=== PATIENT | male | born 1965 | race Caucasian/White ===

== ENCOUNTER → 2018-09-25 | Outpatient (REF) | payer OTHER | END | disposition home or self-care (01) | DRG 552 | LOC: MRI 10:16 | PROVIDERS: ATTEND Internal Medicine | DX: M54.5 Low back pain (principal) ==

== ENCOUNTER 2020-08-10 10:48 | Inpatient (IN) | payer OTHER ==
[~2020-08-10] VITALS: Ht 177.8 cm; Wt 114.4 kg
--- NOTE | 2020-08-10 10:55 | NUR ---
TO ROOM VIA WHEELCHAIR ACCOMPANIED BY 2 SECURITY OFFICERS.
--- NOTE | 2020-08-10 10:55 | NUR ---
TO ROOM 08 FOR TRIAGE
[2020-08-10 11:35] LABS: HEMATOCRIT 35.7 % (39.0-50.0); IMMATURE GRANULOCYTES 4.2 % (0.0-5.0); MEAN CELL VOLUME 90.8 fL CALC (80.0-100.0); MEAN CORPUSCULAR HGB 27.5 pG CALC (26.0-32.0); MEAN CORPUSCULAR HGB CONC 30.3 g/dL CAL (32.0-36.0); NEUT# 11.96 thou/uL (1.82-7.42); RED BLOOD COUNT 3.93 mill/uL (4.70-6.10)
[2020-08-10 11:36] LABS: HEMOGLOBIN 10.8 g/dl (14.0-18.0)
--- NOTE | 2020-08-10 11:40 | NUR ---
TO ULTRASOUND WITH [employer] STAFF ACCOMPANYING.
[2020-08-10 11:56] LABS: ANION GAP 13 (6-22 (CALC)); BUN 14 mg/dL (9-20); BUN/CREATININE RATIO 11 (12-20 (CALC)); CARBON DIOXIDE 29 mmol/l (22-30); CHLORIDE 103 mmol/l (95-108); CREATININE 1.3 mg/dL (0.7-1.3); GFR 57 ML/MIN (>=60 (CALC)); GFR FOR AFR.AMER. > 60 ML/MIN (>=60 (CALC)); POTASSIUM 4.4 mmol/l (3.5-5.1); SODIUM 141 mmol/l (137-146)
[2020-08-10] MEDS ORDERED: TAMSULOSIN HCL0.4 MG PO (12:05)
[2020-08-10] MEDS ORDERED: LEVOTHYROXIN100 MCG PO (12:06)
[2020-08-10] MEDS ORDERED: VENTOLIN HFA IN (12:06)
[2020-08-10] MEDS ORDERED: MELOXICAM7.5 MG PO (12:07)
[2020-08-10] MEDS ORDERED: QVAR REDIH40 MCG/ACT IN (12:08)
[2020-08-10] MEDS ORDERED: OMEPRAZOLE20 MG PO (12:09)
[2020-08-10] MEDS ORDERED: FENOFIBRATE145 MG PO (12:09)
[2020-08-10] MEDS ORDERED: LITHIUM CARB300 MG PO ×2 (12:10→12:13)
[2020-08-10] MEDS ORDERED: CLINDAMYCIN HC150 MG PO (12:11)
[2020-08-10] MEDS ORDERED: GABAPENTIN100 MG PO (12:12)
--- NOTE | 2020-08-10 12:40 | NUR ---
AWAITING ADMISSION. NO C/O
--- NOTE | 2020-08-10 13:42 | NUR ---
REPORT CALLED TO TRINA GARCIA IN SBAR FORMAT.
--- NOTE | 2020-08-10 13:47 | NUR ---
PT ARRIVED TO MED/SURG ROOM 276 IN STABLE CONDITION VIA WHEELCHAIR ACCOMPANIED BY JOSE CAIN AND X2 GUARDS;PT AMBULATED TO BEDSIDE WITH A STEADY GAIT;WT AND VS OBTAINED BY ALIS GOMEZ;PT A&O X3, ORIENTED TO ROOM AND CALL LIGHT SYSTEM;PT REPORTS INCREASED EDEMA AND REDDNESS TO LLE SINCE Monday08/03/20 AFTER RECEIVING COVID19 VACCINE;PT REPORTS MINIMAL PAIN AT THIS TIME,PAIN SCALE AND REPORTING EDUCATED;RESPIRATIONS EVEN AND UNLABORED ON RA,CLEAR LUNG SOUNDS;ABDOMEN SOFT ON PALPATION AND ACTIVE IN ALL 4 QUADRANTS,LAST BM 08/10/20;STRONG PEDAL PULSES;LLE REDDENED WITH EDEMA NOTED, ENCOURAGED ELEVATION ON PILLOW;PHOTOGRAPH TAKEN AND PLACED IN CHART;#20G TO RAC INFUSING NS PER ORDER;ALLERGY BAND APPLIED TO LEFT HAND;PT DENIES ANY ADDITIONAL NEEDS AT THIS TIME;ENCOURAGED TO CALL FOR ASSISTANCE IF NEEDED;FALL PRECAUTIONS IN PLACE WITH BED IN THE LOWEST POSITION AND CALL LIGHT IN REACH;WILL CONTINUE TO MONITOR
--- NOTE | 2020-08-10 13:52 | NUR ---
TRANSFERRED VIA WC TO [facility] ROOM 276. STABLE UPON ARRIVAL. IV INTACT
[2020-08-10 14:15] VITALS: BP 116/54
--- NOTE | 2020-08-10 14:27 | NUR ---
S: BESSY WEBBER is a 55 M who presents with cellulitis. He has a history of mental disorder and thyroid. All medications in patient's chart were reviewed. O: VS: BP 116/54 mmHg, P 59 bpm, RR 20 breaths per minute ,T 98.1 F W 114.4 kg, HT 60 in, Scr= 1.3 mg/dL, CrCl= 81 ml/min A: Blood culture is pending. P: Patient is on Zosyn 3.375 g Q6H. Vancomycin ordered for pharmacy to dose. Start Vancomycin 1 g IV Q8H. Vancomycin trough is drawn before the 4th dose on 08/11/20 at 1330. Vancomycin goal trough is between 10-15 mcg/ml. Pharmacy will follow and or advise on antibiotics use as needed.
--- NOTE | 2020-08-10 15:14 | NUR ---
PT WOULD BENEFIT FROM PT EVALUATION IF MEDICAL AGREES.
--- NOTE | 2020-08-10 15:45 | NUR ---
PT RESTING IN SEMI FOWLERS POSITION WITH X2 GUARDS AT BEDSIDE;RESPIRATIONS EVEN AND UNLABORED ON RA;PT DENIES ANY CURRENT PAIN OR DISCOMFORTS;IV FLUIDS INFUSING WITH EASE PER ORDER;LLE REMAINS ELEVATED;PT ENCOURAGED TO CALL FOR ASSISTANCE IF NEEDED;CALL LIGHT IN REACH;WILL CONTINUE TO MONITOR
[2020-08-10 18:41] VITALS: BP 107/61
--- NOTE | 2020-08-10 20:04 | NUR ---
PHYSICAL ASSESMENT COMPLETE. PT CURRENTLY DENIES PAIN OR DISCOMFORT. SCHEDULED MEDICATIONS AND PRN MEDICATION ADMINISTERED, SEE E-MAR. PT DENIES ANY NEEDS AT THIS TIME. PLAN OF CARE REVIEWED, PT DENIES QUESTIONS, VERBALIZES UNDERSTANDING. ITEMS WITHIN REACH, BED LOCKED IN LOW POSITION W/ BEDRAILS UP X2. CALL ACE WITHIN REACH, AGREES TO CALL PRN.
--- NOTE | 2020-08-10 22:50 | NUR ---
PT GIVEN ANTIBIOTICS. PT HAS 2 GUARDS BEDSIDE AND IS SHACKELED TO THE BED. PT HAS GOOD CIRCULATION. WILL CONTINUE TO ASSESS AND MONITOR.
--- NOTE | 2020-08-11 00:04 | NUR ---
PT LAYING IN BED WITH EYES CLOSED, APPEARS TO BE SLEEPING, APPEARS COMFORTABLE AND IN NO DISTRESS. RESPIRATIONS REGULAR AND UNLABORED. 2 GUARDS REMAIN BEDSIDE. PT SHACKLED TO THE BED. VERIFIED GOOD CIRCULATION. ITEMS REMAIN WITHIN REACH, CALL ACE REMAINS WITHIN REACH. BED REMAINS LOCKED AND IN LOW POSITION WITH BEDRAILS UP X2. WILL CONTINUE TO MONITOR.
[2020-08-11 04:01] VITALS: BP 96/48
--- NOTE | 2020-08-11 06:19 | NUR ---
PT RESTING IN BED, NO SIGNS OF DISTRESS NOTED, RESP EVEN AND UNLABORED. PT VOICES NO NEEDS OR COMPLAINTS AT THIS TIME. 2 GUARDS BEDSIDE. PT ANKLE SHACKELED TO THE BED. CIRCULATION GOOD. CALL LIGHT IN REACH, CONTINUE TO MONITOR.
[2020-08-11 07:45] VITALS: BP 112/64
--- NOTE | 2020-08-11 08:19 | NUR ---
@07:00 RECEIVED REPORT ON PT FROM NIGHT NURSERACHEL.
--- NOTE | 2020-08-11 09:00 | NUR ---
PT WAS FOUND RESTING COMFORTABLY IN BED WITH X2 GUARDS IN ROOM;HANDCUFFS IN PLACE ON RT ANKLE;HEART SOUNDS WERE REGULAR; RADIAL PULSES EVEN BILATERALLY;PEDAL PULSES NOTED BILATERALLY; REDNESS, WARMTH AND 2+PITTING EDEMA NOTED IN LLE;WOUND OBSERVED ON LEFT ANKLE;PT REPORTS PAIN IN LLE, DECLINING PAIN MEDICATIONS AT THIS TIME. LUNG SOUNDS CLEAR IN ALL BUENO;PT IS ON RA WITH NON-LABORED RESPIRATIONS. ABDOMEN WAS SOFT AND NON-TENDER WITH ACTIVE BOWEL SOUNDS IN ALL QUADRANTS; #20 IN RAC INFUSING NS @100ML/HR; SITE APPEARS HEALTHY; VITALS SIGNS WERE WITHIN NORMAL RANGE;PT DOES NOT HAVE ANY CURRENT NEEDS OR QUESTIONS AT THIS TIME;CALL LIGHT WAS LEFT WITHIN REACH;BED IN LOWEST POSITION; WILL CONTINUE TO MONITOR.
--- NOTE | 2020-08-11 12:15 | NUR ---
PT WAS SITTING IN BED EATING LUNCH; IV SITE PATENT AND FREE OF COMPLICATIONS; ZOSYN WAS STARTED AT THIS TIME; PT EXPRESSED NO COMPLAINTS OR ISSUES; CALL LIGHT LEFT WITHIN REACH;BED IN LOWEST POSITION; ADVISED PT TO CALL WITH NEEDS OR CONCERNS; WILL CONTINUE TO MONITOR.
--- NOTE | 2020-08-11 13:45 | NUR ---
DR. SORTO AT BEDSIDE;CONSULTATION FOR LLE WOUND.
--- NOTE | 2020-08-11 14:44 | NUR ---
S: BESSY WEBBER is a 55 M who presents with cellulkitis All medications in patient's chart were reviewed. O: W 114.4 kg, HT 70in, Scr 1.3 mg/dl, CrCl 81.4 ml/min A: Vancomycin trough 08/11 @ 1330 = 11 mcg/ml P: Patient is on Zosyn 3.375g IV q6h Vancomycin ordered for pharmacy to dose. Continue Vancomycin 1g IV Q8H. Vancomycin trough is drawn before the 4th dose on 08/12 @ 1330. Vancomycin goal trough is between 10-15 mcg/ml. Pharmacy will follow and or advise on antibiotics use as needed.
[2020-08-11 16:00] VITALS: BP 100/59
--- NOTE | 2020-08-11 16:35 | NUR ---
PT TRANSPORTED TO MRI IN STABLE CONDITION VIA WHEELCHAIR ACCOMPANIED BY ALIS MUELLER.
--- NOTE | 2020-08-11 18:49 | NUR ---
PT TRANSPORTED BACK TO MED/SURG ROOM 276 IN STABLE CONDITION VIA WHEELCHAIR ACCOMPANNIED BY [place]OR[place] MUELLER AND X2 GUARDS.
[2020-08-11 19:00] VITALS: BP 96/59
--- NOTE | 2020-08-12 00:37 | NUR ---
PT LAYING IN BED WITH EYES CLOSED, APPEARS TO BE SLEEPING, APPEARS COMFORTABLE AND IN NO DISTRESS. RESPIRATIONS REGULAR AND UNLABORED. PT SHACKLED TO BED ON RIGHT ANKLE. CIRCULATION VERIFIED. 2 GUARDS ARE PRESENT AT BEDSIDE. ITEMS REMAIN WITHIN REACH, CALL ACE REMAINS WITHIN REACH. BED REMAINS LOCKED AND IN LOW POSITION WITH BEDRAILS UP X2. WILL CONTINUE TO MONITOR.
[2020-08-12 03:44] VITALS: BP 100/51
[2020-08-12 06:09] LABS: HEMATOCRIT 38.1 % (39.0-50.0); HEMOGLOBIN 11.5 g/dl (14.0-18.0); MEAN CELL VOLUME 89.6 fL CALC (80.0-100.0); MEAN CORPUSCULAR HGB 27.1 pG CALC (26.0-32.0); MEAN CORPUSCULAR HGB CONC 30.2 g/dL CAL (32.0-36.0); RED BLOOD COUNT 4.25 mill/uL (4.70-6.10); RED CELL DISTRI WIDTH 15.9 % (11.5-15.5)
[2020-08-12 06:33] LABS: ALBUMIN 3.5 g/dL (3.2-5.0); ALKALINE PHOSPHATASE 83 u/l (38-126); ANION GAP 11 (6-22 (CALC)); BILIRUBIN, TOTAL 0.6 mg/dL (0.0-1.4); BUN 15 mg/dL (9-20); BUN/CREATININE RATIO 12 (12-20 (CALC)); CARBON DIOXIDE 25 mmol/l (22-30); CHLORIDE 105 mmol/l (95-108); CREATININE 1.2 mg/dL (0.7-1.3); GFR > 60 ML/MIN (>=60 (CALC)); GFR FOR AFR.AMER. > 60 ML/MIN (>=60 (CALC)); POTASSIUM 4.8 mmol/l (3.5-5.1); SGOT/AST 27 u/l (17-59); SODIUM 137 mmol/l (137-146); TOTAL PROTEIN 7.2 g/dL (6.3-8.2)
[2020-08-12 07:57] VITALS: BP 121/51
--- NOTE | 2020-08-12 07:57 | NUR ---
PT LAYING IN BED. A&O X3. X2 GUARDS AT BEDSIDE. SHACKLE IN PLACE TO RT ANKLE. PT DENIES ANY PAIN AT THIS TIME. LLE REDDENED, WARM TO TOUCH WITH NO VISIBLE DRAINAGE NOTED TO BLISTER/ULCER LOCATED TO LT ANKLE. LLE PLACED ON PILLOW TO ELEVATE AND ASSIST WIT SWELLING. ASSESSMENT COMPLETED. DISCUSSED POC. CALL LIGHT LEFT WITHIN REACH.
--- NOTE | 2020-08-12 09:03 | NUR ---
DR CABALLERO AND Kumar GOFF APRN AT BEDSIDE
--- NOTE | 2020-08-12 11:56 | NUR ---
PT SITTING IN BED. X2 GUARDS AT BEDSIDE. NO NEEDS OR DISTRESS AT THIS TIME. CALL LIGHT LEFT WITHIN REACH.
--- NOTE | 2020-08-12 14:00 | NUR ---
VENIPUNCTURE PERFORMED BY THIS MARKETING ANALYTICS SPECIALIST FOR [facility]. SAMPLE OBTAINED, LABELED AND SENT TO LAB
--- NOTE | 2020-08-12 14:25 | NUR ---
[facility] RESULT PENDING AT THIS TIME
--- NOTE | 2020-08-12 14:52 | NUR ---
S: BESSY WEBBER is a 55 M who presents with cellulitis. He has a history of arthritis, lung disease, mental health disorder-depression, hypothyroid. All medications in patient's chart were reviewed. O: VS: BP 121/51 mmHg, P 55 bpm, RR 18 breaths per min, T 98.1 F W 114.39 kg, HT 70 in, Scr= 1.2 mg/dL, CrCl= 88.1 ml/min A: Vancomycin trough 08/12 @1330 = 10 mcg/mL Body fluid culture is pending. Blood culture is pending. P: Patient is on Zosyn 3.375 g IV Q6H. Vancomycin ordered for pharmacy to dose. Continue Vancomycin 1 g IV Q8H. Vancomycin trough is drawn before the 4th dose on 08/12/20 @ 1330. Vancomycin goal trough is between 10-15 mcg/ml. Pharmacy will follow and or advise on antibiotics use as needed.
[2020-08-12 15:00] VITALS: BP 100/47
--- NOTE | 2020-08-12 18:13 | NUR ---
PT SITTING IN BED EATING DINNER. X2 GUARDS AT BEDSIDE. NO DRAINAGE NOTED TO LLE. LLE ELEVATED ON PILLOW. CALL LIGHT LEFT WITHIN REACH.
[2020-08-12 19:30] VITALS: BP 100/51
--- NOTE | 2020-08-12 19:40 | NUR ---
RECEIVED CHANGE OF SHIFT REPORT FROM CHANDRIKA, CARE OF PATIENT ASSUMED.
--- NOTE | 2020-08-12 20:00 | NUR ---
PT A&O X 3 LAYING IN BED, WATCHING TV. 2 [employer] GUARDS PRESENT AT BEDSIDE. ASSESSMENT COMPLETE, POC DISCUSSED. NO S/SX OF DISCOMFORT OR DISTRESS EXPRESSED OR OBSERVED AT THIS TIME. PT DENIES ANY CURRENT NEEDS OR CONCERNS AT THIS TIME. ALL SAFETY MEASURE IN PLACE, BED IN LOWEST POSITION WITH WHEELS LOCKED AND UPPER SIDE RAILS UP X 2 AND CALL LIGHT WITHIN REACH. PT INSTRUCTED TO CALL FOR ANY NEEDS/ASSISTANCE. WILL CONTINUE TO MONITOR.
--- NOTE | 2020-08-13 | NUR ---
PT LAYING IN BED SLEEPING, NO S/SX OF DISTRESS OR DISCOMFORT OBSERVED. CALL LIGHT WITHIN REACH, WILL CONITINUE TO MONITOR FOR COMFORT AND SAFETY.
--- NOTE | 2020-08-13 04:07 | NUR ---
[facility] CALLED REQUESTING UPDATE, INFORMATION PROVIDED.
--- NOTE | 2020-08-13 04:25 | NUR ---
PATIENT LAYING IN BED RESTING, NO S/SX OF DISTRESS OR DISCOMFORT NOTED AT THIS TIME, WILL CONTINUE TO MONITOR FOR COMFORT AND SAFETY.
[2020-08-13 04:34] VITALS: BP 92/58
[2020-08-13 06:13] LABS: HEMATOCRIT 35.5 % (39.0-50.0); HEMOGLOBIN 10.5 g/dl (14.0-18.0); MEAN CELL VOLUME 90.1 fL CALC (80.0-100.0); MEAN CORPUSCULAR HGB 26.6 pG CALC (26.0-32.0); MEAN CORPUSCULAR HGB CONC 29.6 g/dL CAL (32.0-36.0); RED BLOOD COUNT 3.94 mill/uL (4.70-6.10); RED CELL DISTRI WIDTH 15.5 % (11.5-15.5)
[2020-08-13 06:44] LABS: ALBUMIN 3.5 g/dL (3.2-5.0); ALKALINE PHOSPHATASE 73 u/l (38-126); ANION GAP 11 (6-22 (CALC)); BILIRUBIN, TOTAL 0.5 mg/dL (0.0-1.4); BUN 16 mg/dL (9-20); BUN/CREATININE RATIO 13 (12-20 (CALC)); CARBON DIOXIDE 27 mmol/l (22-30); CHLORIDE 103 mmol/l (95-108); CREATININE 1.2 mg/dL (0.7-1.3); GFR > 60 ML/MIN (>=60 (CALC)); GFR FOR AFR.AMER. > 60 ML/MIN (>=60 (CALC)); SGOT/AST 26 u/l (17-59); SODIUM 135 mmol/l (137-146); TOTAL PROTEIN 7.2 g/dL (6.3-8.2)
[2020-08-13 07:15] VITALS: BP 99/49
--- NOTE | 2020-08-13 07:15 | NUR ---
PT LAYING IN BED. A&O X3. GUARDS AT BEDSIDE X2, SHACKLE IN PLACE TO RT ANKLE. PT DENIES ANY PAIN AT THIS TIME. LLE STILL REDDENED IN APPEARANCE BUT LESS SWELLING AND REDDENED COMPARED TO YESTERDAY. NO ACTIVE DRAINAGE NOTED. LLE PLACED ON PILLOW TO ELEVATE. ASSESSMENT COMPLETED. DISCUSSED POC. CALL LIGHT LEFT WITHIN REACH.
--- NOTE | 2020-08-13 08:38 | NUR ---
DR CABALLERO AND Wilmer CANO APRN AT BEDSIDE
--- NOTE | 2020-08-13 11:32 | NUR ---
PT SITTING IN BED. NO DISTRESS OR NEEDS. X2 GUARDS AT BEDSIDE. CALL LIGHT IN REACH.
--- NOTE | 2020-08-13 11:34 | NUR ---
INFORMED CONSENT FOR INCISION AND DRAINAGE OF LEFT ANKLE ABSCESS OBTAINTED.
--- NOTE | 2020-08-13 14:47 | NUR ---
S: BESSY WEBBER is a 55 M who presents with cellulitis. He has a history of arthritis, mental health disorder, hypothyroid, and lung disease. All medications in patient's chart were reviewed. O: Vancomycin trough on 08/13/20: 14 ug/ml VS: BP 99/49 mmHg, P 56 bpm, RR 16 breaths/min, T 97.3 F W 114.39 kg, HT 70 in, Scr= 1.2 mg/dl, CrCl= 88.1 ml/min A: Blood culture is pending. Body fluid culture is pending. P: Patient is on Zosyn 3.375 g IV Q6H. Vancomycin ordered for pharmacy to dose. Continue Vancomycin 1 g IV Q8H. Vancomycin trough is drawn before the 4th dose on 08/14/20 at 1330. Vancomycin goal trough is between 10-15 mcg/ml. Pharmacy will follow and or advise on antibiotics use as needed.
[2020-08-13 14:57] VITALS: BP 92/51
--- NOTE | 2020-08-13 15:25 | NUR ---
PT LAYING IN BED. X2 GUARDS AT BEDSIDE. NO DISTRESS NOTED. CALL LIGHT LEFT WITHIN REACH.
[2020-08-13 19:32] VITALS: BP 91/48
--- NOTE | 2020-08-13 21:30 | NUR ---
PTIN BED WITH EYES OPEN. ABLE TO MAKE NEEDS KNOWN. RESPIRATIONS ARE EVEN AND NON LABORED. HAS NS RUNNING WITHNO COMPLICATIONS.ON IV ABT THEARPY WITH NO ADVERSE SIDE EFFECTS. MEDICATIONS GIVEN AND TOLERATED WELL. HAS REDNESS, WARMTH, AND SWELLING NOTED TO LEFT LOWEREXTREMITY. BLISTERED AREA TO LEFT OUTER ANKLE AREA IS INTACTAND PAINFUL TO TOUCH WITH SOME MACERATION NOTED AROUND SITE. CALL LIGHT WITHIN REACH. WILL CONTINUE TO OBSERVE
[2020-08-14] VITALS (11 sets, daily range): BP systolic 83–103; BP diastolic 34–63
--- NOTE | 2020-08-14 02:49 | NUR ---
PT IN BED WITH EYES CLOSED. VIRI FROM [facility] AT BEDSIDE. PT IS EASILY AROUSED. TOLERATED IV ABT THERAPY WELL. CALLLIGHT IS WITHIN REACH. WILL CONTINUE TO OBSERVE
[2020-08-14 05:45] LABS: ANION GAP 11 (6-22 (CALC)); BUN 22 mg/dL (9-20); BUN/CREATININE RATIO 17 (12-20 (CALC)); CARBON DIOXIDE 27 mmol/l (22-30); CHLORIDE 104 mmol/l (95-108); CREATININE 1.3 mg/dL (0.7-1.3); GFR 57 ML/MIN (>=60 (CALC)); GFR FOR AFR.AMER. > 60 ML/MIN (>=60 (CALC)); POTASSIUM 4.7 mmol/l (3.5-5.1); SODIUM 137 mmol/l (137-146)
--- NOTE | 2020-08-14 07:30 | NUR ---
RECIEVED REPORT DUC HERNANDEZ RN. PT CURRENTLY IN OR FOR SCHEDULED I&D OF LEFT ANKLE.
--- NOTE | 2020-08-14 09:27 | NUR ---
PT ARRIVED TO [facility] ROOM 276 VIA BED IN STABLE CONDITION.REPORT RECIVED FROM OR NURSE. INTRODUCED SELF TO PT AND DISCUSSED POC. PT IS A/O X3 BUT STILL DROWSY.PT IS FROM [facility] WITH GUARDS X2 AT BESIDE. ASSESSMENT AND VITALS COMPLETED. RESPIRATIONS ARE EVEN AND UNLABORED ON ROOM AIR. HEART RHYTHM IS NORMAL. BOWEL SOUNDS ARE ACTIVE, LAST RPEORTED BM 08/12/20. RADIAL AND RIGH PEDAL PULSES STRONG. DRESSING ON LEFT FOOT CDI AT THIS TIME.SCDS IN PLACE. #20G IN RAC INFUSING WITH NORMAL SALINE PER ORDER, SITE APPEARS HEALTHY AND PATENT. PT COMPLAINS OF 3/10 PAIN IN LEFT FOOT. NO ORDERS RECIEVED FROM OR, ORDERS TO BE OBTAINED.PT DENEIS OF ANY OTHER NEEDS AT THIS TIME. ALL SAFETY PRECAUTIONS ARE IN PLACE. WILL CONTINUE TO MONITOR.
--- NOTE | 2020-08-14 10:30 | NUR ---
PT COMPLAINS OF VITALS MACHINE BEEPING. WINDSHIELD WIPER REPAIRER INFORMED PT THAT IT WAS DUE TO HIS HR BEING LOW . WINDSHIELD WIPER REPAIRER EXPRESSED THE NEED FOR MACHINE DUE TO HOSPITAL PROTOCAL. PT VERBALIZED UNDERSTANDING.
--- NOTE | 2020-08-14 11:00 | NUR ---
PT YELLING " TAKE THIS MACHINE OFF, I DONT WANT IT ANY MORE." WRITTER EXPRESSED THE NEED FOR MONITORING BP AND HR. PT REFUSED STATING " TAKE IT OFF." VITALS MACHINE REMOVED. PT COMPLAINS OF 7/10 PAIN IN LEFT ANKLE, PT MEDICATED PER EMAR. PT DENIES OF ANY ATTIONAL NEEDS.SAFTEY PRECAUTIONS IN PLACE WITH GUARDS X2 AT BEDSIDE. WILL CONTINUE TO MONITOR
--- NOTE | 2020-08-14 12:19 | NUR ---
REASSESSMENT OF BP AFTER BOLUS X1 RESULTING IN 99/60. SECOND BOLUS ORDERED, SITE REAMINS HEAHTLHY AND PATENT. REASSESSMENT OF PAIN RESULTING IN 6/10. REPSIRATIONS REMAINS EVEN AND UNLABORED ON ROOM AIR. PT DENIES OF ANY NEEDS AT THIS TIME. ALL SAFETY PRECAUTIONS ARE IN PLACE WITH GUARDS X2 AT BEDSIDE. WILL CONTINUE TO MONITOR
--- NOTE | 2020-08-14 14:22 | NUR ---
S: BESSY WEBBER is a 55 M who presents with cellulitis. He has a history of mental disorder, thyroid. All medications in patient's chart were reviewed. O: Vancomycin trough was 13 ug/mL on 08/14/20 @1330. VS: BP 83/42 mmHg, P 48 bpm, RR 18 breaths per min, T 97.2 F W 114.39 kg, HT 70 in, Scr= 1.3 mg/dL, CrCl= 81.4 ml/min A: Wound culture is pending. Body fluid culture is pending. Blood culture is pending. P: Patient is on Zosyn 3.375 g Q6H. Vancomycin ordered for pharmacy to dose. Continue Vancomycin 1 g IV Q8H. Vancomycin trough is drawn on 08/16/20 @ 0530. Vancomycin goal trough is between 10-15 mcg/ml. Pharmacy will follow and or advise on antibiotics use as needed.
--- NOTE | 2020-08-14 15:29 | NUR ---
PT RESTING IN SEMI FOWLERS POSITION. RESPIRATIONS ARE EVEN AND UNLABORED ON ROOM AIR. PT COMPLAINS OF BURNING IN LEFT LEG BUT REFUSES ANY PAIN MEDICATION AT THIS TIME. IVF INFUSING PER ORDER, SITE REMAINS HEALTHY AND PATENT. DRESSING TO LEFT ANKLE REMAINS CDI AT THIS TIME, ELEVATED ON PILLOW X2. PT REQUEST FOR EXTRA BLANKET. ALL SAFETY PRECAUTIONS REMAINS IN PLACE WITH GUARDS X2 AT BEDSIDE. WILL CONTINUE TO MONITOR
--- NOTE | 2020-08-14 20:00 | NUR ---
REPORT RECEIVED. ASSESSMENT COMPLETE. SAFETY MEASURES IN PLACE. CALL LIGHT WITHIN REACH.
--- NOTE | 2020-08-15 | NUR ---
PT LAYING IN BED SLEEPING, NO S/SX OF DISTRESS OR DISCOMFORT OBSERVED AT THIS TIME; RESPIRATIONS EVEN AND NON-LABORED ON ROOM AIR. SAFETY MEASURES IN PLACE, CALL LIGHT WITHIN REACH. WILL CONTINUE TO MONITOR.
[2020-08-15 00:14] VITALS: BP 80/49
[2020-08-15 03:35] VITALS: BP 83/47
[2020-08-15 08:28] VITALS: BP 91/51
--- NOTE | 2020-08-15 08:28 | NUR ---
RECIEVED REPORT FROM BONNIE PEREZ. PT RESTING IN SEMI FOWLERS POSITION UPON ENTERING ROOM. INTRODUCED SELF TO PT AND DICUSSED POC. PT IS A/O X3 AND FROM [facility]. ASSESSMENT AND VITALS COMPLETED. RESPIRATIONS ARE EVEN AND UNLABORED WITH NO SIGNS OF DISTRESS. HEART RHYTHM IS NORMAL. BOWEL SOUNDS ARE ACTIVE IN ALL QUADRANTS, LAST REPORTED BM 08/12/20. RADIAL AND RIGHT PEDAL PULSE ARE STORNG. DRESSING TO LEFT FOOT IS CDI AT THIS TIME. PT COMPLAINS OF 5/10 PAIN TO LEFT FOOT BUT REFUSES ANY PAIN MEDICATION AT THIS TIME. SKIN IS WAMR AND INTACT WITH NO BREAK DOWN NOTED. ALL SAFETY PRECAUTIONS ARE IN PLACE WITH CALL LIGHT IN REACH AND GUARDS X2 AT BEDSIDE. WILL CONTINUE TO MONITOR.
--- NOTE | 2020-08-15 09:40 | NUR ---
DR DAVENPORT AT BEDSIDE.
--- NOTE | 2020-08-15 09:55 | NUR ---
DRESSING TO LEFT FOOT CHANGED. ADAPITC, 4X4 GAUZE, KRELEX WRAP AND RISHABH WRAP APPLIED. PT TOELRATED WELL. ELEVATED LIMB WITH PILLOWS X2.
[2020-08-15 12:00] VITALS: BP 102/70
--- NOTE | 2020-08-15 12:24 | NUR ---
PT RESTING IN SEMI FOWLERS POSITION. REPSIRATIONS AR EVEN AND UNLABORED ON ROOM AIR. PT COMPLAINS OF 3/10 PAIN IN LEFT FOOT. NEW ORDER FOR TORADOL ORDERED DUE TO LOW BP. DRESSING TO LEFT FOOT REMAINS CDI AT THIS TIME. MOM ADMINISTERED TO ASSIST WITH BM . PT DENEIS OF ANY BOTHER NEEDS AT THIS ITME. ALL SAFETY PRECAUTIONS ARE IN PLACE WITH GUARDSX2 AT BEDSIDE. . WILL CONTINUE TO MONITOR
--- NOTE | 2020-08-15 14:33 | NUR ---
ATTEMPTED TO START NEW IV. UNSUCESSFUL X2. ANOTHER NURSE TO TRY
--- NOTE | 2020-08-15 15:04 | NUR ---
NEW #22G STARTED IN [facility], SITE APPEASR HEALTHY AND PATENT.PT TOELRATED WELL.
--- NOTE | 2020-08-15 15:48 | NUR ---
PT RESTING IN SEMI FOWLERS POSITION. RESPIRATIONS ARE EVEN AND UNLABORED ON ROOM AIR. IV ANTIBIOTICS INFUSING WITH EASE, SITE APPEARS HEALTHY AND PATENT. PT DENIES OF ANY PAINS OR NEEDS.LEFT ANKLE DRESSING CDI, ELEVATED WITH PILLOWS X2. ALL SAFETY PRECAUTIONS ARE IN PLACE WITH CALL LIGHT IN REACH GUADS X2 AT BEDSIDE. WILL CONTINUE TO MONITOR.
[2020-08-15 16:15] VITALS: BP 111/73
--- NOTE | 2020-08-15 19:15 | NUR ---
REPORT RECEIVED. ASSESSMENT COMPLETE. SAFETY MEASURES IN PLACE. CALL LIGHT WITHIN REACH.
[2020-08-15 19:55] VITALS: BP 88/48
--- NOTE | 2020-08-15 23:30 | NUR ---
DRESSING CHANGE OF LEFT FOOT/ ANKLE COMPLETED. PT TOLERATE REMOVAL OF OLD DRESSED WELL, SMALL AMOUNT OF SEROSANGUINEOUS FLUID WITHOUT ODOR, PER MD LLE CLEANSED WITH NS AND PATTED DRY. PLACE APAPTIC GUAZE, 4X4 AND STERILE GUAZE AND WRAP WITH KRELEX & RISHABH WRAP- PT TOLERATED PROCEDURE WELL. REASSESED CIRCULATION OF LLE ASSESS S/P DRESSING- NO S/SX OF DECRESAED CIRCULATION OBSEVERED AT THIS TIME, INSTRUCTED PT TO CALL IF HE DEVELOPED ANY UNSUAL NUMBNESS, LOSE OF SENSATION, THROBBING, OR CHANGE OF SKIN COLOR, PT VERBALIZED UNDERSTANDING. PT OS TOLERATING WELL WITH PILLOWS IN PLACE ON LLE FOR COMFORT SAFETY MEASURES IN PLACE AND LIGHT WITHIN REACH. WILL CONTINUE TO MONITOR.
--- NOTE | 2020-08-16 | NUR ---
PT LAYING IN BED RESTING, NO S/SX OF DISTRESS OR DISCOMFORT OBSERVED AT THIS TIME; RESPIRATIONS EVEN AND NON-LABORED ON ROOMAIR. SAFETY MEASURES IN PLACE, CALL LIGHT WITHIN REACH. WILL CONTINUE TO MONITOR.
[2020-08-16 03:59] VITALS: BP 109/61
--- NOTE | 2020-08-16 05:54 | NUR ---
VANCO TROUGH DUE & OBTAINED- RESULTS 22 THIS AM, OVER THERAPEUTIC RANGE & HELD.
[2020-08-16 06:05] LABS: HEMATOCRIT 38.1 % (39.0-50.0); HEMOGLOBIN 11.5 g/dl (14.0-18.0); MEAN CELL VOLUME 90.5 fL CALC (80.0-100.0); MEAN CORPUSCULAR HGB 27.3 pG CALC (26.0-32.0); MEAN CORPUSCULAR HGB CONC 30.2 g/dL CAL (32.0-36.0); RED BLOOD COUNT 4.21 mill/uL (4.70-6.10)
[2020-08-16 06:27] LABS: ALBUMIN 3.6 g/dL (3.2-5.0); ALKALINE PHOSPHATASE 59 u/l (38-126); ANION GAP 12 (6-22 (CALC)); BILIRUBIN, TOTAL 0.3 mg/dL (0.0-1.4); BUN 20 mg/dL (9-20); BUN/CREATININE RATIO 17 (12-20 (CALC)); CARBON DIOXIDE 25 mmol/l (22-30); CHLORIDE 105 mmol/l (95-108); CREATININE 1.2 mg/dL (0.7-1.3); GFR > 60 ML/MIN (>=60 (CALC)); GFR FOR AFR.AMER. > 60 ML/MIN (>=60 (CALC)); POTASSIUM 4.6 mmol/l (3.5-5.1); SGOT/AST 29 u/l (17-59); SODIUM 137 mmol/l (137-146); TOTAL PROTEIN 7.5 g/dL (6.3-8.2)
--- NOTE | 2020-08-16 07:30 | NUR ---
RECIEVED REPORT FROM BONNIE PEREZ.
[2020-08-16 08:20] VITALS: BP 97/63
--- NOTE | 2020-08-16 08:20 | NUR ---
PT RESTING IN SEMI FOWLERS POSITION. INTRODUCED SELF TO PT AND DISCUSSED POC. PT IS A/O X3 AND FROM [facility] WITH GUARDS X2 AT BEDSIDE. ASSESSMENT AND VITALS COMPLETED. BP 97/63, HR 52, O2 100% ON ROOM AIR. RESPIRATIONS ARE EVEN AND UNLABORED WITH NO DISTRESS NOTED. HEART RHYTHM IS NORMAL. BOWEL SOUNDS ARE ACTIVE, LAST REPORTED BM 08/15/20. RADIAL AND RIGHT PEDAL PULSES STRONG. DRESSING TO LEFT FOOT CDI AT THIS TIME.RIGHT ANKLE SACKLED TO BED. #22G IN [place] INFUSING WITH IVF PER ORDER, SITE APPEARS HEALTHY AND PATENT. PT COMPLAINS OF 7/10 PAIN IN LEFT FOOT, TORADOL TO BE ADMINISTERED. PT DENIES OF ANY OTHER PAINS OR DISCOMFORTS. ALL SAFETY PRECAUTIONS ARE IN PLACE WITH CALL LIGHT IN REACH. WILL CONTINUE TO MONITOR
--- NOTE | 2020-08-16 09:33 | NUR ---
SPOKE WITH JOSE LEONE FROM [facility]. UPDATE PROVIDED
--- NOTE | 2020-08-16 10:35 | NUR ---
DR MATTHEWS AT BEDSIDE DISCUSSING POC WITH PT
--- NOTE | 2020-08-16 12:50 | NUR ---
PT RESTINGIN HIGH [place] POSITION. REPSIRATIONS ARE EVEN AND UNLABORED ON ROOM AIR. IV ANTIBIOTICS INFUSING WITH EASE, SITE APEARS HEALTHY AND PATENT. DRESSING TO LEFT LEG REMAINS CDI. PT REQUEST TO SHOWER LATER. PT DENIES OF ANY PAINS OR DISCOMFORTS AT THIS TIME. ALL SAFETY PRECAUTIONS ARE IN PLACE WITH CALL LIGHT IN REACH. WILL CONTINUE TO MONITOR
--- NOTE | 2020-08-16 15:10 | NUR ---
DRESSING TO LEFT LEG CHANGED. WOUND CLEASED WITH NORMAL SALINE AND PAT DRY. ADAPTIC APPLIED WITH 4X4 GUAZE AND ABD PAD. KRELEX AND RISHABH WRAP APPLIED. PT TOELRATED WELL. LIMB ELEVATED WITH PILLOW.
--- NOTE | 2020-08-16 15:52 | NUR ---
PT SLEEPING IN SEMI FOWLERS POSITION. REPSPIRATIONS ARE EVEN AND UNLABORED ON ROOM AIR. IVF INFUSING PER ORDER, SITE REMAINS HEALTHY AND PATENT.DRESSING TO LEFT FOOT REMAINS CDI. ELAVTED ON PILLOW. NO SIGNS OF ANY PAINS OR DISCOMFORTS. ALL SAFTEY PRECAUTIONS ARE IN PLACE WITH CALL LIGHT IN REACH AND GUARDS X2 AT BEDSIDE . WILL CONTINUE TO MONITOR
[2020-08-16 16:00] VITALS: BP 102/68
[2020-08-16 19:48] VITALS: BP 93/55
--- NOTE | 2020-08-16 20:15 | NUR ---
PT ASSESSMENT COMPLETED AT THIS TIME. PT ASKING ABOUT DRESSING CHANGE. LAST DRESSING WAS PERFORMED THIS AFTERNOON AT 1500, POC AND TIMING DISCUSSED WITH PT, VERBALIZED UNDERSTANDING. GUARDS X2 AT BEDSIDE.
--- NOTE | 2020-08-17 00:29 | NUR ---
PT MEDICATED WITH IV ANTIBIOTIC THERAPY. PT SLEEPING, BUT AWOKE TO MY VOICE. 2X GUARDS AT BEDSIDE. URINAL EMPTIED OF 700CC OF CLEAR YELLOW URINE.
[2020-08-17 04:00] VITALS: BP 90/53
--- NOTE | 2020-08-17 05:00 | NUR ---
DRESSING CHANGED TO LEFT FOOT ORDERS PROVIDE. NO S/O DISTRESS NOTED. GUARDS X2 AT BEDSIDE.
--- NOTE | 2020-08-17 05:33 | NUR ---
PT MEDICATED ORDERS PROVIDE AND ICE/ICEWATER PROVIDED PER REQUEST.
[2020-08-17 05:56] LABS: ANION GAP 11 (6-22 (CALC)); BUN 22 mg/dL (9-20); BUN/CREATININE RATIO 16 (12-20 (CALC)); CARBON DIOXIDE 27 mmol/l (22-30); CHLORIDE 105 mmol/l (95-108); CREATININE 1.4 mg/dL (0.7-1.3); GFR 53 ML/MIN (>=60 (CALC)); GFR FOR AFR.AMER. > 60 ML/MIN (>=60 (CALC)); POTASSIUM 4.7 mmol/l (3.5-5.1); SODIUM 138 mmol/l (137-146)
[2020-08-17 07:52] VITALS: BP 104/70
--- NOTE | 2020-08-17 07:52 | NUR ---
PATIENT IN BED AT THIS TIME CALL LIGHT WITHIN REACH SIDERAILS ARE [facility] AT BEDSIDE. LEFT ANKLE SCHACKLED AT THIS TIME. DRESSING ON RIGHT FOOT DRY AND INTACT. VOCATIONAL EDUCATION PROFESSIONAL DONE SEE INTERVENTIONS.
--- NOTE | 2020-08-17 10:22 | NUR ---
S: BESSY WEBBER is a 55 M who presents with CELLULITIS. He has a history of SSTI. All medications in patient's chart were reviewed. O: A: P: Vancomycin ordered for pharmacy to doSE TROUGH IS 22 CHANGE Vancomycin TO 1 GRAM Q12H Vancomycin trough is drawn before the 4th dose 08/18/20 @830 Vancomycin goal trough is between <10-15 mcg/ml>. Pharmacy will follow and or advise on antibiotics use as needed. MORENA WARREND
--- NOTE | 2020-08-17 11:51 | NUR ---
PATIENT LAYING IN BED SHACKELD AND TWO OFFICERS AT BEDSIDE. CALL LIGHT WITHIN REACH SIDERAILS UP X2 DENIES ANY NEEDS CURRENTLY.
[2020-08-17] MEDS ORDERED: ROCEPHIN 1 GM1 GM IM (11:56)
--- NOTE | 2020-08-17 15:38 | NUR ---
PATIENT D/C THIS TIME BACK TO [facility] PATIENT VERBALIZES UNDERSTANDING OF DC INSTRUCTIONS WILL CALL MEDICAL DEPARTMENT AT [facility].
--- NOTE | 2020-08-17 15:59 | NUR ---
Discharge instructions given. Patient verbalizes understanding of same. [facility] . All belongings sent with pt. REPORT GIVEN TO VENUS Lindsey
== END 2020-08-17 15:51 | disposition designated cancer center or children's hospital (05) | DRG 571 ==
LOC: ED 10:48 → ED-I 12:00 → ED 12:20 → MS2 12:21
PROVIDERS: Family Medicine; Nurse Practitioner Family; ADMIT Internal Medicine; ATTEND Internal Medicine
PROC: 0J9R3ZZ Drainage of Left Foot Subcutaneous Tissue and Fascia, Percutaneous Approach (ICD-10-PCS; principal; 2020-08-12)
PROC: 0JBR0ZZ Excision of Left Foot Subcutaneous Tissue and Fascia, Open Approach (ICD-10-PCS; 2020-08-14)
DX: L03.116 Cellulitis of left lower limb (principal); L97.329 Non-pressure chronic ulcer of left ankle with unspecified severity; L02.416 Cutaneous abscess of left lower limb; S90.512A Abrasion, left ankle, initial encounter; E03.9 Hypothyroidism, unspecified; F31.9 Bipolar disorder, unspecified; X58.XXXA Exposure to other specified factors, initial encounter; I95.81 Postprocedural hypotension; B95.5 Unspecified streptococcus as the cause of diseases classified elsewhere; Z20.822 Contact with and (suspected) exposure to COVID-19
CPT/HCPCS: A9579; J1650